=== PATIENT | male | born 1995 | race Caucasian/White ===

== ENCOUNTER 2020-10-25 14:47 | Emergency (ER) | payer SELFPAY ==
[2020-10-25 15:00] VITALS: BP 125/88; PULSE 74; RESP 16; TEMP 36.3; O2SAT 99
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
[2020-10-25 15:14] VITALS: PULSE 75; RESP 18; O2SAT 98
== END 2020-10-25 15:18 | disposition home or self-care (01) ==
PROVIDERS: Emergency Provider Emergency Medicine
DX: Z04.3 Encounter for examination and observation following other accident (principal)
CPT/HCPCS: 99282

== ENCOUNTER 2021-11-18 16:57 | Emergency (ER) | payer OTHER, SELFPAY ==
[2021-11-18 17:05] VITALS: BP 116/73; PULSE 70; RESP 18; TEMP 36.8; O2SAT 100
--- NOTE | 2021-11-18 17:27 | ED.GENADULT ---
HPI - General Adult General Chief complaint: Unspecified Stated complaint: sharp pain right side ribs Time Seen by Provider: 11/18/21 17:00 Source: patient and RN notes reviewed History of Present Illness HPI narrative: Patient is a 26-year-old male who presents the urgent care with complaints of right anterior rib pain. Patient states that he woke with the pain today and believes he may have pulled something because he lifts heavy at work. Patient denies of any known trauma or injury to the chest. States it is worse with cough, lifting, pushing and pulling. Patient states that his main concern is obtaining a work note for today because he was unable to go to work. Patient has not taken anything [id number] for pain. No other acute complaints. No acute distress noted. Patient aware of the plan of care. Some parts of this dictation were generated by voice recognition software and may contain typographical and/or grammatical inaccuracies. Related Data Home Medications Medication Instructions Recorded Confirmed No Home Medications 10/25/20 11/18/21 Allergies Allergy/AdvReac Type Severity Reaction Status Date / Time No Known Allergies Allergy Verified 11/18/21 17:11 Review of Systems Review of Systems: CONSTITUTIONAL: Denies fever, chills, or sweats. EYES: Denies visual changes, redness, or discharge. ENT: Denies rhinorrhea, congestion, sore throat, or otalgia. CARDIOVASCULAR: Denies chest pain, palpitations, or edema. RESPIRATORY: Denies cough or dyspnea. Reports of right anterior rib pain GASTROINTESTINAL: Denies abdominal pain, nausea, vomiting, or diarrhea. GENITOURINARY: Denies dysuria or hematuria. SKIN: Denies rash or itching. MUSCULOSKELETAL: Denies back pain, joint pain, or myalgia. NEUROLOGIC: Denies headache, numbness, or weakness. All other systems reviewed are negative, except as documented in HPI. PMFSH Past Medical History Medical History Patient denies medical problems Comments At the time of my signature, I reviewed and agree with the nursing past medical, surgical, social, and family history. There is no relevant family history pertinent to the patient complaint. Exam Narrative: GENERAL: This is a well-nourished, well-developed patient, in no apparent distress. HEAD: normocephalic, atraumatic. EYES: PERRL. Sclera clear/white. Vision is grossly intact. EARS: External ears normal NOSE: External nose normal with no obvious nasal discharge, nares without redness, no rhinorrhea. THROAT: Mucous membranes moist NECK: Neck supple CARDIOVASCULAR: Regular rate and rhythm without murmurs, gallops, or rubs. RESPIRATORY: Clear to auscultation. Breath sounds equal bilaterally. No wheezes, rales, or rhonchi. Mild right anterior thoracic rib tenderness at approximately #8 without bruising to the chest wall. Pain exacerbated on bending SKIN: warm, intact with no suspicious lesions or rash, good texture and turgor. NEURO: awake, alert, and oriented to person, place and time. There were no obvious focal neurologic abnormalities. EXTREMITIES: No clubbing, cyanosis, or edema. Course Course Level of Care: Express Care Visit Vital Signs Vital signs: Vital Signs Temperature 98.3 F 11/18/21 17:05 Pulse Rate 70 11/18/21 17:05 Respiratory Rate 18 11/18/21 17:05 Blood Pressure 116/73 11/18/21 17:05 Pulse Oximetry 100 11/18/21 17:05 Temperature 98.3 F 11/18/21 17:05 Pulse Rate 70 11/18/21 17:05 Respiratory Rate 18 11/18/21 17:05 Blood Pressure 116/73 11/18/21 17:05 Pulse Oximetry 100 11/18/21 17:05 Reviewed Medical Decision Making MDM Narrative Medical decision making narrative: Advised the patient to use Tylenol/ibuprofen as needed for pain or discomfort. Avoid any strenuous activity or heavy lifting/pushing/pulling until activity as tolerated as normal. If you develop any increase in pain associated with
== END 2021-11-18 17:45 | disposition home or self-care (01) ==
PROVIDERS: Emergency Provider Nurse Practitioner Family
DX: S29.011A Strain of muscle and tendon of front wall of thorax, initial encounter (principal); X58.XXXA Exposure to other specified factors, initial encounter
CPT/HCPCS: 99212; G0463

== ENCOUNTER 2023-09-02 15:37 | Emergency (ER) | payer OTHER, SELFPAY ==
--- NOTE | ~2023-09-02 | XR_ITS ---
EXAMINATION: XR hand RT min 3V DATE: 09/02/2023 16:07 INDICATION: Right hand injury and pain and swelling. TECHNIQUE: 3 views of right hand were obtained. COMPARISON: None. FINDINGS: There is an oblique fracture of neck of fifth metacarpal. The distal fracture fragment demo nstrates 2 mm radial displacement and 10 degrees palmar angulation. Joint spaces are normal. IMPRESSION: 1. Oblique fracture of neck of fifth metacarpal. Reviewed, dictated and finalized at location E.
[2023-09-02 15:38] VITALS: BP 110/70; PULSE 80; RESP 17; TEMP 36.6; O2SAT 99
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
[2023-09-02 16:27] VITALS: BP 110/70; PULSE 80; RESP 17; TEMP 36.6; O2SAT 99
== END 2023-09-02 16:27 | disposition home or self-care (01) ==
PROVIDERS: Emergency Provider Emergency Medicine
DX: S62.306A Unspecified fracture of fifth metacarpal bone, right hand, initial encounter for closed fracture (principal); W22.01XA Walked into wall, initial encounter
CPT/HCPCS: 73130; 99284; A4565